=== PATIENT | male | born 1940 | race Caucasian/White ===

== ENCOUNTER 2019-05-26 19:18 | Observation (INO) | payer MEDICARE, OTHER, SELFPAY ==
[2019-05-26] VITALS (11 sets, daily range): BP systolic 103–188; BP diastolic 71–110; PULSE 65–107; RESP 15–23; TEMP 36.7–36.9; O2SAT 92–96; BMI 28.7
--- NOTE | 2019-05-26 | DI.NM.S_ITS ---
PROCEDURE: NM MIHAI PERF SPECT STR Rest and exercise myocardial perfusion SPECT with gated imaging and ejection fraction RADIOPHARMACEUTICAL: 27.9 mCi Tc-99m sestamibi IV at peak exercise. No rest images done. INDICATIONS: Chest pain TECHNIQUE: Radiopharmaceutical was injected at peak stress test, and also at rest. SPECT images were obtained. SPECT myocardial perfusion images were displayed in short axis, horizontal long axis, and vertical long axis views. Gated images were reviewed using [employer] software. COMPARISON: None. CARDIAC STRESS: A standard Wilbert treadmill exercise tolerance test was performed by the patient under the supervision of an attending staff. The patient exercised for 6 minutes and 0 seconds; functional aerobic impairment (GOLDY) is -9%. Hemodynamic data: There is normal blood pressure and heart rate response to exercise stress. Patient achieved 92% of maximum predicted heart rate at peak exercise. Symptoms: Patient denied chest pain during exercise. EKG: No diagnostic EKG changes of ischemia; no ectopy. FINDINGS: Raw data: There is good myocardial labeling by radiotracer. No significant motion artifacts. Umvj-xj-zutnr ratio is 0.28 (normal is less than 0.38 for sestamibi tracer, and less than 0.50 for thallium tracer). Left ventricle function: Gated images demonstrate normal left ventricle wall thickening. No segmental wall motion abnormality. The left ventricle post stress end-diastolic volume is 74 mL. Left ventricle stress ejection fraction is 88%; normal values are above 45%. Myocardial perfusion: There is normal distribution of activity in the left and right ventricular myocardium. No fixed or reversible perfusion defects. IMPRESSION: Low risk, normal treadmill stress only nuclear study. 1) No perfusion evidence of ischemia or infarction. 2) Normal left ventricular size, wall motion, and systolic function (EF post stress 88%). 3) No ECG evidence of ischemia. 4) No angina during the study. 5) Slightly above average exercise capacity (7.0 METs, GOLDY -9%). Target heart rate achieved. Appropriate BP response to exercise. 6) No prior nuclear stress test available for comparison. Findings discussed with Dr. Cooper at 1245 on 05/27/2019. Dictated by: Mary Anne Dozier MD on 05/27/2019 at 13:00 Approved by: Mary Anne Dozier MD on 05/27/2019 at 13:04
--- NOTE | 2019-05-26 19:25 | DI.RAD.S_ITS ---
PROCEDURE: XR CHEST 1V INDICATIONS: chest pain TECHNIQUE: One view of the chest was acquired. COMPARISON: None. FINDINGS: Surgical changes and devices: None. Lungs and pleura: Lungs are clear. No pleural effusions or pneumothorax. Mediastinum: Mediastinal contours appear normal. Heart size is normal. Bones and chest wall: No suspicious bony lesions. Overlying soft tissues appear unremarkable. IMPRESSION: No acute process. Dictated by: Michael Carlton M.D. on 05/26/2019 at 19:59 Approved by: Michael Carlton M.D. on 05/26/2019 at 20:00
--- NOTE | 2019-05-26 19:34 | ED_ITS ---
HPI - Chest Pain General Chief Complaint: Chest Pain Stated Complaint: pain left shoulder,left side chest pain Time Seen by Provider: 05/26/19 19:20 Source: patient Mode of arrival: Ambulatory Limitations: no limitations History of Present Illness HPI narrative: 78-year-old male nonsmoker with history of hypertension presents with his and a chief complaint of left-sided chest pressure that came in waves earlier in the day but became more persistent after 6:00 p.m.. He denies any provocation or palliation but does state that seems to radiate into his shoulder though he has had shoulder problems for at least a month. He denies associated symptoms such as dizziness, weakness or lightheadedness. He denies any cough or shortness of breath. He denies any exertional provocation and states that he uses his treadmill a few times weak and does not have decreased exercise tolerance. He has never had a stress test or any cardiac history. His primary care provider is Dr. Alex. At its most intense he states the pain is squeezing in nature and 4/10 in severity MD complaint: chest pain Onset (ago): hour(s) Duration: constant Onset: during rest Pain location: left chest Severity: moderate Quality: tightness and aching Pain radiation: LUE Relieving factors: nothing Exacerbating factors: nothing Treatments prior to arrival chest pain: none Review of Systems Constitutional Constitutional: Denies chills, Denies fatigue, Denies fever(s), Denies frequent falls, Denies lethargy and Denies weakness Eyes Eyes: Denies change in vision, Denies eye discharge, Denies irritation and Denies loss of vision ENT Ears, Nose, Mouth, and Throat: Denies change in voice, Denies dizziness, Denies neck pain, Denies sore throat and Denies throat swelling Cardiovascular Cardiovascular: Reports chest pain, Denies irregular heart rhythm, Denies lightheadedness, Denies palpitations, Denies dyspnea, Denies dyspnea on exertion and Denies orthopnea Respiratory Respiratory: Denies cough, Denies dyspnea, Denies dyspnea on exertion and Denies wheezing Gastrointestinal Gastrointestinal: Denies abdominal pain, Denies change in bowel habits, Denies diarrhea, Denies nausea and Denies vomiting Genitourinary Genitourinary: Denies hematuria, Denies flank pain, Denies urinary incontinence and Denies urinary urgency Musculoskeletal Musculoskeletal: Denies back pain, Denies muscle weakness, Denies neck pain, Denies numbness and Denies tingling Integumentary/Breasts Skin/Breast: Denies pruritus, Denies erythema, Denies rash and Denies wounds Neurologic Neurologic: Denies behavioral changes, Denies confusion, Denies dizziness, Denies frequent falls, Denies loss of vision, Denies numbness, Denies tingling and Denies weakness Psychiatric Psychiatric: Denies anxiety, Denies behavioral changes, Denies confusion, Denies depression, Denies homicidal ideation and Denies suicidal ideation Endocrine Endocrine: Denies fatigue, Denies flushing and Denies palpitations Hematologic/Lymphatic Hematologic/Lymphatic: Denies easy bruising Allergic/Immunologic Allergic/Immunologic: Denies urticaria, Denies throat swelling and Denies wheezing Patient History Social History Smoking Status: Never smoker Smoking Status: Never smoker Exam Narrative Exam Narrative: GENERAL: [78] year old patient appears stated age. Well-no urished, well-developed patient, in mild distress. Hard of hearing HEAD: Atraumatic. Normocephalic. EYES: Pupils equal round and reactive. Extraocular motions intact. No scleral icterus. No injection or drainage. ENT: Nose without bleeding, purulent drainage. Throat without erythema, tonsillar hypertrophy or exudate. Airway patent. NECK: Trachea midline. Non tender CARDIOVASCULAR: Regular rate and rhythm without murmurs, gallops, or rubs. RESPIRATORY: Clear to auscultation. Breath sounds equal bilaterally. No wheezes, rales, or rhonchi. GASTROINTESTINAL: Abdomen soft, non-tender, nondistended. EXTREMITIES: No edema or joint tenderness. BACK: Nontender without deformity or crepitance. No flank tenderness. NEURO: AOx3. SKIN: No rash or erythema of visible areas Initial Vital Signs Initial Vital Signs: Vital Signs Pulse Rate 107 H 05/26/19 19:24 Respiratory Rate 20 05/26/19 19:24 Blood Pressure 188/110 H 05/26/19 19:24 Pulse Oximetry 96 05/26/19 19:24 Course Orders Ordered: ED Orders 05/26/19 19:25 XR chest 1V Stat EKG-12 Lead Stat 05/26/19 19:30 Complete Blood Count AUTO DIFF Stat Comprehensive Metabolic Panel Stat D Dimer Stat Lipase Stat Troponin I Stat 05/26/19 21:22 Troponin I Stat Nitroglycerin (Nitrostat) 0.4 mg SL [id number] PRN PRN Reason: Chest Pain Last Admin: 05/26/19 19:42 Dose: 0.4 mg Documented by: JUSTO Discontinued Medications Aspirin (Aspirin Chew) 324 mg PO NOW ONE Stop: 05/26/19 19:36 Last Admin: 05/26/19 19:41 Dose: 324 mg Documented by: JUSTO Reevaluation(s) Reevaluation #1: patient given full dose ASA and first NG, BP down to 110 and chest pain worse. He lays down and symptoms improve. Consultations Consultation #1: Call to Cardiology at [facility]. After discussion regarding the patient's recent history and physical exam as well as nonischemic EKGs and 1st negative troponin we sure the opinion the patient certainly needs admission to the hospital but does not require transfer at this point time. He recommends consultation with our hospitalist admission here for stress test and likely echo Consultation #2: Hospitalist happy to accept patient on his service Vital Signs Vital signs: Vital Signs - 8 hr 05/26/19 19:24 05/26/19 19:36 05/26/19 19:42 Pulse Rate 107 H 92 H 107 H Respiratory Rate 20 18 Blood Pressure 188/110 H 179/92 H Blood Pressure [Left Arm] 179/92 H Pulse Oximetry 96 96 05/26/19 19:50 05/26/19 20:00 05/26/19 20:30 Pulse Rate 101 H 99 H 89 Respiratory Rate 20 19 19 Blood Pressure Blood Pressure [Left Arm] 103/75 113/79 127/71 Pulse Oximetry 92 93 93 05/26/19 21:00 Pulse Rate 85 Respiratory Rate 15 Blood Pressure Blood Pressure [Left Arm] 135/82 Pulse Oximetry 93 MDM - Chest Pain Lab Data Result diagrams: 05/26/19 19:30 05/26/19 19:30 Labs: Lab Results 05/26/19 05/26/19 05/26/19 Range/Units 19:30 19:30 19:30 WBC 7.8 (4.5-11.0) X10^3/uL RBC 5.58 (4.5-5.9) X10^6/uL Hgb 18.5 H (13.5-17.5) g/dL Hct 53.4 H (41-53) % MCV 95.8 (80-100) fL MCH 33.2 (26-34) PG MCHC 34.6 (30-36) % RDW 13.1 (11.6-14.8) % Plt Count 153 (150-400) X10^3/uL Neut % (Auto) 66.4 (50-75) % Lymph % (Auto) 20.8 L (25-40) % [place] % (Auto) 10.8 (3-14) % Eos % (Auto) 1.1 L (2-4) % Baso % (Auto) 0.9 (0-2) % Neut # (Auto) 5200 (0202-9682) /uL Lymph # (Auto) 1600 (8185-7556) /uL [place] # (Auto) 800 (0-900) /uL Eos # (Auto) 100 (0-450) /uL Baso # (Auto) 100 (0-100) /uL D-Dimer 260 H (<230) ng/mL Sodium 139 (137-145) mmol/L Potassium 4.3 (3.4-5.1) mmol/L Chloride 107 (98-107) mmol/L Carbon Dioxide 22 (22-32) mmol/L BUN 22 H (9-20) mg/dL Creatinine 0.80 (0.66-1.25) mg/dL Estimated GFR > 60.0 (>60) mL/min BUN/Creatinine Ratio 27.5 H (6-22) Glucose 134 H (80-110) mg/dL Calcium 9.9 (8.4-10.2) mg/dL Total Bilirubin 0.6 (0.2-1.3) mg/dL AST 35 (17-59) IU/L ALT 39 (<50) IU/L Alkaline Phosphatase 62 (38-126) U/L Troponin I < 0.012 (0.01-0.034) ng/mL Total Protein 7.9 (6.3-8.2) g/dL Albumin 4.7 (3.5-5.0) g/dL Globulin 3.2 (1.7-4.1) g/dL Albumin/Globulin Ratio 1.5 (1.0-2.8) Lipase 213 (23-300) U/L Imaging Data Chest x-ray: Radiologist's Impression: [address] [address] XRay Report Signed Patient: Bebo Nayak KMR#: [id number] : 1Acct:[id number] Age/Sex: 78 / MDate of Service: 05/26/19 Loc: ED Accession Number: [id number] Procedure: XR chest 1V Ordering Provider: Levon Dasilva D.O. PROCEDURE: XR CHEST 1V INDICATIONS: chest pain TECHNIQUE: One view of the chest was acquired. COMPARISON: None. FINDINGS: Surgical changes and devices: None. Lungs and pleura: Lungs are clear. No pleural effusions or pneumothorax. Mediastinum: Mediastinal contours appear normal. Heart size is normal. Bones and chest wall: No suspicious bony lesions. Overlying soft tissues appear unremarkable. IMPRESSION: No acute process. Dictated by: Michael Carlton M.D. on 05/26/2019 at 19:59 Approved by: Michael Carlton M.D. on 05/26/2019 at 20:00 ECG Data Attestation: I personally reviewed and interpreted this ECG as follows: Interpretation: EKG is normal sinus rhythm rate [100 ] and free of any signs of ischemia or ectopy. No ST segmental elevation or depression. No T wave inversions Discharge Plan Departure Patient Disposition: Admitted as Observation Clinical Impression: Chest pain Qualifiers: Chest pain type: unspecified Qualified Code(s): R07.9 - Chest pain, unspecified Admit Date/Time: 05/26/19 21:38 Admit Provider: Tayo Melendez
[2019-05-26 19:41] LABS: Add Manual Diff / Slide Review NO; Basophils Absolute Auto 100 /uL (0-100); Basophils Percent Auto 0.9 % (0-2); Eosinophils Absolute Auto 100 /uL (0-450); Eosinophils Percent Auto 1.1 % (2-4); Hematocrit 53.4 % (41-53); Hemoglobin 18.5 g/dL (13.5-17.5); Lymphocytes Absolute Auto 1600 /uL (1100-4500); Lymphocytes Percent Auto 20.8 % (25-40); Mean Corpuscular HGB Conc 34.6 % (30-36); Mean Corpuscular Hemoglobin 33.2 PG (26-34); Mean Corpuscular Volume 95.8 fL (80-100); Monocytes Absolute Auto 800 /uL (0-900); Monocytes Percent Auto 10.8 % (3-14); Neutrophils Absolute Auto 5200 /uL (1500-7000); Neutrophils Percent Auto 66.4 % (50-75); Platelet Count 153 X10^3/uL (150-400); Red Blood Cell Count 5.58 X10^6/uL (4.5-5.9); Red Cell Distribution Width 13.1 % (11.6-14.8); White Blood Cell Count 7.8 X10^3/uL (4.5-11.0)
[2019-05-26] MEDS: ASPIRIN 81 MG CHEW TAB 324 MG PO (19:41)
[2019-05-26] MEDS: NITROGLYCERIN 0.4 MG SL TAB SL (19:42)
[2019-05-26 19:51] LABS: Alanine Aminotransferase 39 IU/L (<50); Albumin 4.7 g/dL (3.5-5.0); Albumin Globulin Ratio 1.5 (1.0-2.8); Alkaline Phosphatase 62 U/L (38-126); Aspartate Aminotransferase 35 IU/L (17-59); BUN Creatinine Ratio 27.5 (6-22); Bilirubin Total 0.6 mg/dL (0.2-1.3); Blood Urea Nitrogen 22 mg/dL (9-20); Calcium 9.9 mg/dL (8.4-10.2); Carbon Dioxide 22 mmol/L (22-32); Chloride 107 mmol/L (98-107); Estimated Glomerular Filt Rate > 60.0 mL/min (>60); Globulin 3.2 g/dL (1.7-4.1); Glucose 134 mg/dL (80-110); HEMOLYSIS 46 (0-50); Lipase 213 U/L (23-300); Potassium 4.3 mmol/L (3.4-5.1); Sodium 139 mmol/L (137-145); Total Protein 7.9 g/dL (6.3-8.2)
[2019-05-26 20:02] LABS: Troponin I < 0.012 ng/mL (0.01-0.034)
[2019-05-26 20:46] LABS: D Dimer 260 ng/mL (<230)
[2019-05-26 21:58] LABS: Troponin I < 0.012 ng/mL (0.01-0.034)
--- NOTE | 2019-05-26 22:15 | PC.ADMIT ---
[address] Admission Note: The patient,Bebo Nayak,78 y/o, was given written information regarding hospital policies, unit procedures and contact persons. Pt arrived from ED via w/c. Ambulated to bed. Steady on feet. VSS. RA. Tele placed on. Denies chest pain. Report 03/29 l. shoulder pain. oriented to room and call system. Bed alarm on. Pt verbalized he will call for needs. Patient's smoking status: Never smoker. Vital Signs - 8 hr 05/26/19 19:24 05/26/19 19:36 05/26/19 19:42 Pulse Rate 107 H 92 H 107 H Respiratory Rate 20 18 Blood Pressure 188/110 H 179/92 H Blood Pressure [Left Arm] 179/92 H Pulse Oximetry 96 96 05/26/19 19:50 05/26/19 20:00 05/26/19 20:30 Pulse Rate 101 H 99 H 89 Respiratory Rate 20 19 19 Blood Pressure Blood Pressure [Left Arm] 103/75 113/79 127/71 Pulse Oximetry 92 93 93 05/26/19 21:00 05/26/19 21:59 Pulse Rate 85 65 Respiratory Rate 15 23 Blood Pressure Blood Pressure [Left Arm] 135/82 142/83 H Pulse Oximetry 93 94
[2019-05-26 22:48] LABS: Prothrombin Time 11.3 SECONDS (10.1-12.7)
[2019-05-26 22:51] LABS: PTT Partial Thromboplastin Tim 30 SECONDS (26.4-36.2)
[2019-05-26] MEDS: SODIUM CHLORIDE 0.9% 1,000 ML 100 ML IV (23:08)
--- NOTE | 2019-05-26 23:44 | PM.HP.1 ---
History of Present Illness History of Present Illness Date Patient Seen: 05/26/19 Time Patient Seen: 23:44 Chief complaint: pain left shoulder,left side chest pain Narrative: Mr. Bebo Nayak is a 78-year-old male with a history significant for hypertension, hyperlipidemia and prediabetes who presents to the ER with chest pain. The patient states that he started having intermittent episodes of left anterior chest discomfort approximately 1:00 p.m. today becoming constant approximately 6:00 p.m.. He describes the episodes is a pressure sensation which radiates to the left shoulder and upper arm that he describes as an ache. He reports no history of trauma or injury and the pain is not palpable reproducible. He rates the pain at its worst as 3/10. He denies associated symptoms of shortness of breath nausea or palpitations. The patient denies previous episodes of chest pain and exercises on treadmill typically 2 times per week. He controls his blood sugar by not eating sweets. Patient denies complaints of recent illness and has had no fevers and chills, nasal congestion or sore throat. He has chest pain as described above without palpitations. He denies complaints of shortness of breath cough or wheezing. He has had no abdominal pain and denies heartburn, nausea or vomiting. He describes no change in bowel habits with this last bowel movement this morning. He reports no difficulty urinating, he gets up 2-3 times nightly to urinate. He is normally active and independent in his ADLs. Upon arrival to the ER the patient has a heart rate of 107 with a blood pressure 188/110, respirations of 20 saturating 96% on room air. Twelve lead EKG is obtained which finds sinus tach at a rate of 100 without ectopy, first-degree AV block is present with a p.r. interval of 208 milliseconds. Q-waves are noted in lead [address] or T-wave changes. A chest x-rays taken which finds no acute cardiopulmonary processes. On laboratory analysis he has white count of 7.8, hemoglobin of 18.5, hematocrit of 53.4 and platelets of 153. His electrolytes are within normal limits and has a BUN of 22 and a creatinine of 0.8. Nonfasting glucose is 134. Liver function tests are all within normal limits. His D-dimer is 260. He had troponin evaluated in the ER twice both of which were negative at less than 0.012. In the ER the patient received aspirin 324 mg and 1 sublingual nitroglycerin which appears to have resolved the patient's chest discomfort. Cardiology was contacted who recommends overnight monitoring and stress test. The patient is admitted to the medicine service for chest pain, rule out acute coronary syndrome. Patient History Medical History (Updated 05/27/19 @ 00:15 by CARLTON Baires) Hyperlipidemia (Acute) Hypertension (Acute) Pre-diabetes (Acute) Surgical History (Updated 05/27/19 @ 00:15 by CARLTON Baires) History of appendectomy (Acute) Family & Social History Family History (Updated 05/27/19 @ 00:18 by CARLTON Baires) Father No significant medical problems Mother No significant medical problems Brother Cancer Tobacco & Substance use: Smoking Status Never smoker Comment: The patient lives in a single family home with his to whom he has been for 59 years. Reports his father lived to be 99 and related to sequelae of head trauma. His mother lived to be 102 with no significant medical problems. He has 2 brothers 1 of whom has bone cancer. His 3 children whom he describes is in good health. He has no family history of diabetes. He indicates that his grandmother and grandfather both had cancer. He reports no other family members have known heart disease. Smoking: The patient has never used tobacco products. Alcohol: Patient endorses consuming 2 glasses a wine nightly. Substance use: The patient denies use of recreational pharmaceuticals herbal products. He did try hemp seeds a few weeks ago without benefit. Advanced directives: Patient does have formal advanced directives and states his desire to be FULL CODE. He designates his Letty to be his surrogate decision maker. Meds Home Medications and Allergies Home Medications Medication Instructions Recorded Confirmed Type lisinopril 20 mg PO DAILY 05/26/19 05/26/19 History Allergies Allergy/AdvReac Type Severity Reaction Status Date / Time Dfnaord-Wfb-Jbt Reductase Allergy Verified 05/26/19 22:11 Inhibitor Review of Systems Review of Systems ROS: Yes All systems reviewed with the patient and are negative except as otherwise documented Exam Vital Signs (past 8 hours): - 05/26/19 19:24 05/26/19 19:36 05/26/19 19:42 Temperature Pulse Rate 107 H 92 H 107 H Respiratory Rate 20 18 Blood Pressure 188/110 H 179/92 H Blood Pressure [Left Arm] 179/92 H Pulse Oximetry 96 96 05/26/19 19:50 05/26/19 20:00 05/26/19 20:30 Temperature Pulse Rate 101 H 99 H 89 Respiratory Rate 20 19 19 Blood Pressure Blood Pressure [Left Arm] 103/75 113/79 127/71 Pulse Oximetry 92 93 93 05/26/19 21:00 05/26/19 21:59 05/26/19 22:14 Temperature Pulse Rate 85 65 Respiratory Rate 15 23 Blood Pressure Blood Pressure [Left Arm] 135/82 142/83 H Pulse Oximetry 93 94 95 05/26/19 22:16 Temperature 98.5 F Pulse Rate 91 H Respiratory Rate 18 Blood Pressure 127/84 Blood Pressure [Left Arm] Pulse Oximetry 95 Oxygen Delivery Method Room Air Narrative Exam Narrative: GENERAL APPEARANCE: well developed, overweight male, in no acute distress. HEENT: Normocephalic, PERRLA, conjunctiva clear, sclerae are anicteric, EOMs intact without nystagmus, no sinus tenderness to percussion, no rhinorrhea, mucous membranes are pink and dry, hearing aid in left ear. NECK/THYROID: neck supple, no JVD, no carotid bruit, no thyromegaly, trachea midline. LYMPH NODES: no cervical or supraclavicular lymphadenopathy. SKIN: [place], warm and dry, no visible lesions, rashes, decreased skin turgor. HEART: regular rate and rhythm, S1-S2, 2/6 systolic murmur, no rubs or gallops, brisk capillary refill, no edema LUNGS: clear to auscultation bilaterally, no coarseness crackles or wheezing, no cough present CHEST: Symmetrical movement, no accessory muscle use, good tidal volume. ABDOMEN: Soft, round, tympanic upper abdomen to percussion, no abdominal tenderness, no organomegaly, no flank or suprapubic tenderness, active bowel tones. BACK: Normal curvature, nontender to palpation, no back pain with straight leg raise. EXTREMITIES: moves all extremities, strength is 5/5 and symmetrical, no deformities or joint effusions. NEUROLOGIC: AAO x4, no focal neurologic deficits, cranial nerves II-XII grossly intact, sensation intact to light touch, presbycusis uses hearing aids.. PSYCH: Good judgment, linear thought process, cooperative, appropriate with stable behavior Objective Labs Result Diagrams: 05/26/19 19:30 05/26/19 19:30 Labs: Laboratory Results - last 24 hr 05/26/19 05/26/19 05/26/19 19:30 19:30 19:30 WBC 7.8 RBC 5.58 Hgb 18.5 H Hct 53.4 H MCV 95.8 MCH 33.2 MCHC 34.6 RDW 13.1 Plt Count 153 Neut % (Auto) 66.4 Lymph % (Auto) 20.8 L [place] % (Auto) 10.8 Eos % (Auto) 1.1 L Baso % (Auto) 0.9 Neut # (Auto) 5200 Lymph # (Auto) 1600 [place] # (Auto) 800 Eos # (Auto) 100 Baso # (Auto) 100 PT INR APTT D-Dimer 260 H Sodium 139 Potassium 4.3 Chloride 107 Carbon Dioxide 22 BUN 22 H Creatinine 0.80 Estimated GFR > 60.0 BUN/Creatinine Ratio 27.5 H Glucose 134 H Calcium 9.9 Total Bilirubin 0.6 AST 35 ALT 39 Alkaline Phosphatase 62 Troponin I < 0.012 Total Protein 7.9 Albumin 4.7 Globulin 3.2 Albumin/Globulin Ratio 1.5 Lipase 213 05/26/19 05/26/19 19:30 21:22 WBC RBC Hgb Hct MCV MCH MCHC RDW Plt Count Neut % (Auto) Lymph % (Auto) [place] % (Auto) Eos % (Auto) Baso % (Auto) Neut # (Auto) Lymph # (Auto) [place] # (Auto) Eos # (Auto) Baso # (Auto) PT 11.3 INR 1.0 APTT 30 D-Dimer Sodium Potassium Chloride Carbon Dioxide BUN Creatinine Estimated GFR BUN/Creatinine Ratio Glucose Calcium Total Bilirubin AST ALT Alkaline Phosphatase Troponin I < 0.012 Total Protein Albumin Globulin Albumin/Globulin Ratio Lipase Assessment & Plan Assessment & Plan narrative: 1. Chest pain, rule out acute coronary syndrome, present on admission, active. -Patient with new onset of chest pain at 1:00 p.m. that would, go becoming a constant pressure approximately 6:00 p.m. with associated radiation to the left shoulder and arm. No associated symptoms of shortness of breath diaphoresis or nausea. Chest pain improved in the ER following 1 sublingual nitroglycerin. -No prior episodes and no significant family history of cardiovascular disease. Patient's personal history of hypertension, hyperlipidemia and prediabetes. -Twelve lead EKG shows sinus tach at 100 and without ectopy, first-degree AV block with a [place] interval of 208 milliseconds, Q-waves noted in lead 2 and 3, no ST or T-wave changes. Chest x-ray reveals no acute cardiopulmonary processes. -2 hours serial troponins are negative both being less than 0.012. D-dimer is 260. -patient receives aspirin 324 mg in the ER will continue aspirin 81 mg daily. -ordered nitro Dur paste 0.4 mg topically daily, nitroglycerin sublingual every 5 minutes x3 for chest pain, morphine 2 mg IV as needed chest pain unrelieved by nitro. -ordered echocardiogram with Q-waves inferiorly in lead 2 and 3. -ordered nuclear med stress test. -added PTT, PT/INR to labs. 2. Essential hypertension, present on admission, active -Patient with elevated blood pressure upon arrival in the ER to 188/110. -Patient received nitroglycerin sublingual in the ER with marked improvement of blood pressure. Blood pressure on admission to the floors 129/83. -will continue patient's home regimen of lisinopril 20 mg daily. 3. Hyperlipidemia, present on admission, active. 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 -last lipid panel on record was February 2017 finding total cholesterol of 148, triglycerides 121, LDL of 59 and HDL 65. -will recheck lipid panel with morning labs. -will continue patient's home lipid management medication once identified, his is bringing medication in from home tomorrow. 4. Pre diabetes, present on admission, active. -Patient has elevated blood sugar 134 on admission to the ER. -patient manages blood sugars by dietary management and avoiding sweets. -will check hemoglobin A1c. VTE prophylaxis: SCDs, heparin. IV fluid: Normal saline 100 cc/hour Diet: Heart healthy, no added sweets, NPO after midnight. The patient is admitted to the hospital for chest pain and rule out acute coronary syndrome. Patient is admitted as observation with expected length of stay to be less than 2 midnights. Scores GCS [place] coma scale eye opening: Spontaneous [place] coma scale verbal response: Orientated [place] coma scale motor response: Obey commands [place] coma scale total score: 15
[2019-05-27] VITALS (9 sets, daily range): BP systolic 102–129; BP diastolic 64–83; PULSE 69–75; RESP 15–17; TEMP 36.3–36.6; O2SAT 93–96
[2019-05-27] MEDS: NITROGLYCERIN 0.4 MG PATCH TOP (00:42)
--- NOTE | 2019-05-27 01:51 | PC.NURSE ---
SPO2 while sleeping 90%, 2 liters / applied & SPO2 94-95%. Re-assessed pain level, CP down to 0.5 to zero. Will cont. POC & monitor.
[2019-05-27 05:59] LABS: Add Manual Diff / Slide Review NO; Basophils Absolute Auto 100 /uL (0-100); Basophils Percent Auto 1.1 % (0-2); Eosinophils Absolute Auto 100 /uL (0-450); Eosinophils Percent Auto 1.9 % (2-4); Hematocrit 46.4 % (41-53); Hemoglobin 15.9 g/dL (13.5-17.5); Lymphocytes Absolute Auto 1300 /uL (1100-4500); Lymphocytes Percent Auto 23.8 % (25-40); Mean Corpuscular HGB Conc 34.4 % (30-36); Mean Corpuscular Hemoglobin 32.7 PG (26-34); Mean Corpuscular Volume 95.2 fL (80-100); Monocytes Absolute Auto 700 /uL (0-900); Monocytes Percent Auto 12.6 % (3-14); Neutrophils Absolute Auto 3400 /uL (1500-7000); Neutrophils Percent Auto 60.6 % (50-75); Platelet Count 132 X10^3/uL (150-400); Red Blood Cell Count 4.87 X10^6/uL (4.5-5.9); White Blood Cell Count 5.6 X10^3/uL (4.5-11.0)
[2019-05-27 06:05] LABS: BUN Creatinine Ratio 26.3 (6-22); Blood Urea Nitrogen 21 mg/dL (9-20); Calcium 8.6 mg/dL (8.4-10.2); Carbon Dioxide 27 mmol/L (22-32); Chloride 108 mmol/L (98-107); Cholesterol 126 mg/dL (140-199); Estimated Glomerular Filt Rate > 60.0 mL/min (>60); Glucose 104 mg/dL (80-110); HDL Cholesterol 43 mg/dL (40-60); HEMOLYSIS < 15 (0-50); LDL Cholesterol Calculated 71 mg/dL (<100); Potassium 4.5 mmol/L (3.4-5.1); Sodium 139 mmol/L (137-145); Triglycerides 60 mg/dL (35-150)
[2019-05-27 06:13] LABS: Hemoglobin A1C% w Est Avg Glu 5.7 % (4.0-6.0)
[2019-05-27] MEDS: MORPHINE 2 MG/ML INJ IV (06:28)
[2019-05-27 06:35] LABS: Troponin I < 0.012 ng/mL (0.01-0.034)
[2019-05-27] MEDS: MAG HYDROX/ALUM/SIMETH 30 ML UDC PO (06:49)
--- NOTE | 2019-05-27 07:15 | PC.NURSE ---
0658 Pain level down to 1/10 after medicated with 2 mg. of Morphine IVP & B/P after Morphine was admin. was 101/64 & HR. of 66. Also given Maalox per Hospitalist ordered. Report given to day RN, will cont. POC & monitor
--- NOTE | 2019-05-27 08:35 | CM.DANOTE ---
DCP: Case received, EMR reviewed and met with patient. Introduced self and role. Was able to meet with patient to obtain information regarding baseline activity and health information. DCP assessment completed with information currently available. Patient is a 78 year old male who admitted yesterday evening to the care of the hospitalist team. PCP: Dr. Alex. Payer: confirmed: Medicare/[employer] PPO. Patient came to the hospital via family vehicle secondary to left sided chest pain and left shoulder discomfort. Patient has history of HTN. Patient is here for observation for chest pain, and is to be having a stress test today. Met with patient briefly. Patient is alert and oriented, sitting up in bed. He is independent, drives, uses no DME supplies. Confirmed that he resides with his Letty, in [facility]. They have been for 59 years. P: DCP to continue to follow. Patient should be able to go home when he is medically stable. Debra Llanos RN/Clay [employer]isan
[2019-05-27] MEDS: HEPARIN 5,000 UNIT/ML VIAL 5000 UNIT SUBCUT (09:04)
[2019-05-27] MEDS: SODIUM CHLORIDE 0.9% FLUSH 10 ML IV (09:04)
[2019-05-27] MEDS: ASPIRIN EC 81 MG TABLET PO (09:04)
--- NOTE | 2019-05-27 11:52 | PM.TREADMILL ---
Cardiac Stress Test Report Referral & Results Date Patient Seen: 05/27/19 Time Patient Seen: 11:52 Requesting provider: Tayo Melendez Indication: chest pain Rest ECG: sinus rhythm Procedure Note: ECG with technically poor tracings Standard Wilbert protocol, 6:01, 6.9 METS Good exercise capacity, GOLDY -9% Normal hemodynamic response to exercise No chest pain or anginal symptoms Resting ECG sinus rhythm, no ST changes; no ectopy Impression: Normal exercise stress test Nuclear images pending Please note: Actual ECG tracings can be found in the PACS system.
--- NOTE | 2019-05-27 13:35 | P.DS_ITS ---
History of Present Illness History of Present Illness Chief complaint: pain left shoulder,left side chest pain Narrative: Mr. Bebo Nayak is a 78-year-old male with a history significant for hypertension, hyperlipidemia and prediabetes who presents to the ER with chest pain. The patient states that he started having intermittent episodes of left anterior chest discomfort approximately 1:00 p.m. today becoming constant approximately 6:00 p.m.. He describes the episodes is a pressure sensation which radiates to the left shoulder and upper arm that he describes as an ache. He reports no history of trauma or injury and the pain is not palpable reproducible. He rates the pain at its worst as 3/10. He denies associated symptoms of shortness of breath nausea or palpitations. The patient denies previous episodes of chest pain and exercises on treadmill typically 2 times per week. He controls his blood sugar by not eating sweets. Patient denies complaints of recent illness and has had no fevers and chills, nasal congestion or sore throat. He has chest pain as described above without p alpitations. He denies complaints of shortness of breath cough or wheezing. He has had no abdominal pain and denies heartburn, nausea or vomiting. He describes no change in bowel habits with this last bowel movement this morning. He reports no difficulty urinating, he gets up 2-3 times nightly to urinate. He is normally active and independent in his ADLs. Upon arrival to the ER the patient has a heart rate of 107 with a blood pressure 188/110, respirations of 20 saturating 96% on room air. Twelve lead EKG is obtained which finds sinus tach at a rate of 100 without ectopy, first-degree AV block is present with a p.r. interval of 208 milliseconds. Q-waves are noted in lead [address] or T-wave changes. A chest x-rays taken which finds no acute cardiopulmonary processes. On laboratory analysis he has white count of 7.8, hemoglobin of 18.5, hematocrit of 53.4 and platelets of 153. His electrolytes are within normal limits and has a BUN of 22 and a creatinine of 0.8. Nonfasting glucose is 134. Liver function tests are all within normal limits. His D-dimer is 260. He had troponin evaluated in the ER twice both of which were negative at less than 0.012. In the ER the patient received aspirin 324 mg and 1 sublingual nitroglycerin which appears to have resolved the aurelio cloud's chest discomfort. Cardiology was contacted who recommends overnight monitoring and stress test. The patient is admitted to the medicine service for chest pain, rule out acute coronary syndrome. Discharge Providers Provider Date of admission: 05/26/19 21:38 Discharge Date: 05/27/19 Primary care physician: Martir Alex MD Consults: 05/26/19 22:01 Consult to Discharge Planning Routine Comment: Discharge provider: Zach Matos MD Summary Hospital Course Discharge Diagnosis: 1. Chest pain rule out 2. Shoulder pain 3. Polycythemia, NOS 4. Essential hypertension Hospital Course: Patient ruled out for [place]. His MIBI stress test was low risk without areas of ischemia. GOLDY - 9. He was initially hypertensive but BP normalized on its own. He described pain in the left trap m. radiating to shoulder and anterior chest suggestive of nerve impingement. He will follow up with Dr Alex for further eval and possible PT referral. He has polycythemia. His initial labs showed Hb/Hct 18.5/53.4 and with overnight hydration improved to 15.9/46.4. Looking on Kuli Kuli he has had polycythemia on labs dating to 2016. I asked patient to follow up with Dr Alex for further moonitoring or work up. Status at Discharge Cognitive/behavioral status at discharge: oriented Functional status at discharge: independent ambulation Overall status at discharge: patient is back to baseline Time Spent with Patient Time spent: Less than 30 minutes Exam Vital Signs (past 8 hours): - 05/27/19 06:00 05/27/19 07:50 05/27/19 07:52 Temperature 97.6 F Pulse Rate 73 Respiratory Rate 15 Blood Pressure 102/67 Pulse Oximetry 96 95 96 05/27/19 08:59 05/27/19 10:21 05/27/19 11:26 Temperature 98 F Pulse Rate 73 75 Respiratory Rate 17 Blood Pressure 102/67 106/76 Pulse Oximetry 93 93 Oxygen Delivery Method Room Air Oxygen Flow Rate 0 Objective Labs Result Diagrams: 05/27/19 05:00 05/27/19 05:00 Labs: Laboratory Results - last 24 hr 05/26/19 05/26/19 05/26/19 19:30 19:30 19:30 WBC 7.8 RBC 5.58 Hgb 18.5 H Hct 53.4 H MCV 95.8 MCH 33.2 MCHC 34.6 RDW 13.1 Plt Count 153 Neut % (Auto) 66.4 Lymph % (Auto) 20.8 L [place] % (Auto) 10.8 Eos % (Auto) 1.1 L Baso % (Auto) 0.9 Neut # (Auto) 5200 Lymph # (Auto) 1600 [place] # (Auto) 800 Eos # (Auto) 100 Baso # (Auto) 100 PT INR APTT D-Dimer 260 H Sodium 139 Potassium 4.3 Chloride 107 Carbon Dioxide 22 BUN 22 H Creatinine 0.80 Estimated GFR > 60.0 BUN/Creatinine Ratio 27.5 H Glucose 134 H Hemoglobin A1c Calcium 9.9 Total Bilirubin 0.6 AST 35 ALT 39 Alkaline Phosphatase 62 Troponin I < 0.012 Total Protein 7.9 Albumin 4.7 Globulin 3.2 Albumin/Globulin Ratio 1.5 Triglycerides Cholesterol LDL Cholesterol, Calc HDL Cholesterol Lipase 213 05/26/19 05/26/19 05/27/19 19:30 21:22 05:00 WBC 5.6 RBC 4.87 Hgb 15.9 Hct 46.4 MCV 95.2 MCH 32.7 MCHC 34.4 RDW 13.0 Plt Count 132 L Neut % (Auto) 60.6 Lymph % (Auto) 23.8 L [place] % (Auto) 12.6 Eos % (Auto) 1.9 L Baso % (Auto) 1.1 Neut # (Auto) 3400 Lymph # (Auto) 1300 [place] # (Auto) 700 Eos # (Auto) 100 Baso # (Auto) 100 PT 11.3 INR 1.0 APTT 30 D-Dimer Sodium Potassium Chloride Carbon Dioxide BUN Creatinine Estimated GFR BUN/Creatinine Ratio Glucose Hemoglobin A1c Calcium Total Bilirubin AST ALT Alkaline Phosphatase Troponin I < 0.012 Total Protein Albumin Globulin Albumin/Globulin Ratio Triglycerides Cholesterol LDL Cholesterol, Calc HDL Cholesterol Lipase 05/27/19 05/27/19 05/27/19 05:00 05:00 05:00 WBC RBC Hgb Hct MCV MCH MCHC RDW Plt Count Neut % (Auto) Lymph % (Auto) [place] % (Auto) Eos % (Auto) Baso % (Auto) Neut # (Auto) Lymph # (Auto) [place] # (Auto) Eos # (Auto) Baso # (Auto) PT INR APTT D-Dimer Sodium 139 Potassium 4.5 Chloride 108 H Carbon Dioxide 27 BUN 21 H Creatinine 0.80 Estimated GFR > 60.0 BUN/Creatinine Ratio 26.3 H Glucose 104 Hemoglobin A1c 5.7 Calcium 8.6 Total Bilirubin AST ALT Alkaline Phosphatase Troponin I < 0.012 Total Protein Albumin Globulin Albumin/Globulin Ratio Triglycerides 60 Cholesterol 126 L LDL Cholesterol, Calc 71 HDL Cholesterol 43 Lipase Discharge Plan Discharge Plan Patient Disposition: Home Discharge comment: You were admitted due to chest discomfort. Your stress test did not show any sign of coronary blockage. Your discomfort may be due to a pinched nerve. Take Tylenol (regular or extra strength) 1-2 tabs three times daily as needed. Your blood work showed elevated hemoglobin and hematocrit which Dr Alex can further assess and monitor. Discharge orders & Medications Prescriptions: Continued lisinopril 20 mg tablet 20 mg PO DAILY RF: 0 Follow up/Referrals: Martir Alex MD [Primary Care Provider] - Discharge Health Status Multidrug resistant organism: No MDRO Diet/Activity/Treatments Diet: Diet as Tolerated Discharge Data Primary Care Provider: Martir Alex Attending Provider: Tayo Melendez Admit Date/Time: 05/26/19 21:38 Quality VTE Deep Vein Thrombosis/Pulmonary Embolism Present on Admission: No
--- NOTE | 2019-05-27 14:23 | PC.NURSE ---
Went over dc meds and instructions with patient, questions answered. Patient will call PCP Isai and make follow up appointment. Patient taken via wc to vehicle driven by spouse, patient had all belongings.
--- NOTE | 2019-06-04 15:19 | PC.NURSE ---
Late entry: NS stop time 05/26 1630
== END 2019-05-27 14:25 | disposition home or self-care (01) ==
LOC: ED 21:09 → AC 21:39
PROVIDERS: Admitting Provider Nurse Practitioner Adult Health; Emergency Provider Emergency Medicine; Family Provider Internal Medicine; PCP Internal Medicine; Visit Provider Nurse Practitioner Adult Health
DX: R07.9 Chest pain, unspecified (principal); I10 Essential (primary) hypertension; R73.03 Prediabetes; E78.5 Hyperlipidemia, unspecified; M25.512 Pain in left shoulder; D75.1 Secondary polycythemia
CPT/HCPCS: 36415; 71045; 78451; 80048; 80053; 80061; 83036; 83690; 84484; 85025; 85379; 85610; 85730; 93005; 93010; 93017; 96361; 96372; 96374; 99283; 99284; G0378; A9502; J1644; J2270

== ENCOUNTER → 2019-06-21 10:09 | Outpatient (CLI) | payer MEDICARE, OTHER, SELFPAY ==
[2019-05-26 23:48] VITALS: BMI 28.7
--- NOTE | 2019-06-21 | DI.RAD.S_ITS ---
PROCEDURE: XR SHOULDER LT MIN 2V INDICATIONS: Pain In Left Shoulder TECHNIQUE: 2 views of the shoulder were acquired. COMPARISON: None. FINDINGS: Bones: No fractures or dislocations. No suspicious bony lesions. Visualized ribs appear intact. Severe acromioclavicular degenerative narrowing is present. Mild glenohumeral narrowing. Slight high riding appearance of the humeral head. Soft tissues: No suspicious soft tissue calcifications. IMPRESSION: 1. Prominent degenerative changes at the acromioclavicular and glenohumeral joints. 2. High riding appearance of the humeral head, which can be indicative of rotator cuff pathology. Dictated by: Faina Morris M.D. on 06/21/2019 at 10:42 Approved by: Faina Morris M.D. on 06/21/2019 at 10:43
== END ==
PROVIDERS: Family Provider Internal Medicine; PCP Internal Medicine; Referring Provider Internal Medicine; Visit Provider Internal Medicine
DX: M25.512 Pain in left shoulder (principal)
CPT/HCPCS: 73030

== ENCOUNTER → 2020-04-14 12:48 | Outpatient (CLI) | payer MEDICARE, OTHER, SELFPAY ==
[2019-05-26 23:48] VITALS: BMI 28.7
[2020-04-14] MEDS: COVID-19 VACC #1, MRNA(MOD) 100 MCG/0.5 ML VIAL IM (12:53)
== END ==
PROVIDERS: Family Provider Internal Medicine; PCP Internal Medicine; Visit Provider Internal Medicine
DX: Z23 Encounter for immunization (principal)
CPT/HCPCS: 0011A; 91301

== ENCOUNTER → 2020-05-12 13:00 | Outpatient (CLI) | payer MEDICARE, OTHER, SELFPAY ==
[2019-05-26 23:48] VITALS: BMI 28.7
[2020-05-12] MEDS: COVID-19 VACC #2, MRNA(MOD) 100 MCG/0.5 ML VIAL IM (13:04)
== END ==
PROVIDERS: Family Provider Internal Medicine; PCP Internal Medicine; Visit Provider Internal Medicine
DX: Z23 Encounter for immunization (principal)
CPT/HCPCS: 0012A; 91301

== ENCOUNTER → 2022-04-27 10:52 | Outpatient (CLI) | payer MEDICARE, OTHER, SELFPAY ==
[2022-04-27 10:42] VITALS: BMI 28.7
[2022-04-27 12:06] LABS: Hemoglobin A1C% w Est Avg Glu 5.7 % (4.0-6.0)
[2022-04-27 12:29] LABS: BUN Creatinine Ratio 22.9 (6-22); Blood Urea Nitrogen 19 mg/dL (9-20); Calcium 9.5 mg/dL (8.4-10.2); Carbon Dioxide 28 mmol/L (22-32); Chloride 102 mmol/L (98-107); Cholesterol 168 mg/dL (140-199); Estimated Glomerular Filt Rate > 60 mL/min (>60); Glucose 113 mg/dL (80-110); HDL Cholesterol 57 mg/dL (40-60); HEMOLYSIS < 15 (0-50); LDL Cholesterol Calculated 90 mg/dL (<100); Potassium 4.7 mmol/L (3.4-5.1); Sodium 140 mmol/L (137-145); Triglycerides 105 mg/dL (35-150)
== END ==
PROVIDERS: Family Provider Internal Medicine; PCP Family Medicine; Referring Provider Family Medicine; Visit Provider Family Medicine
DX: R73.01 Impaired fasting glucose (principal); I10 Essential (primary) hypertension; E78.5 Hyperlipidemia, unspecified
CPT/HCPCS: 36415; 80048; 80061; 83036

== ENCOUNTER → 2023-04-24 08:45 | Outpatient (CLI) | payer MEDICARE, OTHER, SELFPAY ==
[2022-04-27 10:42] VITALS: BMI 28.7
[2023-04-24 09:59] LABS: Add Manual Diff / Slide Review NO; Basophils Absolute Auto 0 /uL (0-100); Basophils Percent Auto 0.8 % (0-2); Eosinophils Absolute Auto 200 /uL (0-450); Hematocrit 49.7 % (41-53); Lymphocytes Absolute Auto 800 /uL (1100-4500); Lymphocytes Percent Auto 13.7 % (25-40); Mean Corpuscular HGB Conc 34.2 % (30-36); Mean Corpuscular Hemoglobin 32.7 PG (26-34); Mean Corpuscular Volume 95.5 fL (80-100); Monocytes Absolute Auto 700 /uL (0-900); Monocytes Percent Auto 11.8 % (3-14); Neutrophils Absolute Auto 4300 /uL (1500-7000); Neutrophils Percent Auto 70.7 % (50-75); Platelet Count 158 X10^3/uL (150-400); Red Cell Distribution Width 13.4 % (11.6-14.8); White Blood Cell Count 6.1 X10^3/uL (4.5-11.0)
[2023-04-24 10:05] LABS: Hemoglobin A1C% w Est Avg Glu 5.6 % (4.0-6.0)
[2023-04-24 10:13] LABS: Alanine Aminotransferase 33 IU/L (<50); Albumin 4.3 g/dL (3.5-5.0); Albumin Globulin Ratio 1.6 (1.0-2.8); Alkaline Phosphatase 61 U/L (38-126); Aspartate Aminotransferase 27 IU/L (17-59); BUN Creatinine Ratio 26.8 (6-22); Bilirubin Total 0.9 mg/dL (0.2-1.3); Blood Urea Nitrogen 22 mg/dL (9-20); Calcium 9.7 mg/dL (8.4-10.2); Carbon Dioxide 25 mmol/L (22-32); Chloride 107 mmol/L (98-107); Cholesterol 156 mg/dL (140-199); Estimated Glomerular Filt Rate > 60 mL/min (>60); Globulin 2.7 g/dL (1.7-4.1); Glucose 102 mg/dL (80-110); HDL Cholesterol 66 mg/dL (40-60); HEMOLYSIS < 15 (0-50); LDL Cholesterol Calculated 72 mg/dL (<100); Potassium 4.6 mmol/L (3.4-5.1); Sodium 137 mmol/L (137-145); Triglycerides 89 mg/dL (35-150)
== END ==
PROVIDERS: Family Provider Internal Medicine; PCP Family Medicine; Referring Provider Family Medicine; Visit Provider Family Medicine
DX: Z00.00 Encounter for general adult medical examination without abnormal findings (principal); R73.01 Impaired fasting glucose; E78.5 Hyperlipidemia, unspecified; I10 Essential (primary) hypertension; D69.6 Thrombocytopenia, unspecified
CPT/HCPCS: 36415; 80053; 80061; 83036; 85025

== ENCOUNTER → 2023-05-03 11:27 | Outpatient (CLI) | payer MEDICARE, OTHER, SELFPAY ==
[2022-04-27 10:42] VITALS: BMI 28.7
--- NOTE | 2023-05-03 11:29 | DI.RAD.S_ITS ---
PROCEDURE: XR LUMBAR SPINE 2-3V INDICATIONS: Lumbar pain TECHNIQUE: 3 views of the lumbar spine were acquired. COMPARISON: None. FINDINGS: Bones: Transitional lumbosacral body is designated as S1 for this report. 5 mm grade 1 anterolisthesis at L4-5. Generalized osteopenia. No vertebral body compression fractures. No suspicious bony lesions. Multilevel disc space narrowing degenerative endplate changes, most notably at the L4-5 level. There is moderate to severe facet hypertrophy in the lower lumbar spine. Soft tissues: Overlying bowel gas pattern is normal. Aortic atherosclerotic calcifications are present. IMPRESSION: Moderate to severe multilevel spondylosis and degenerative spondylolisthesis. Approved by: Jono Sullivan M.D. on 05/03/2023 at 17:33
== END ==
PROVIDERS: Family Provider Internal Medicine; PCP Family Medicine; Referring Provider Nurse Practitioner Family; Visit Provider Nurse Practitioner Family
DX: M47.816 Spondylosis without myelopathy or radiculopathy, lumbar region (principal); M43.16 Spondylolisthesis, lumbar region; M54.50 Low back pain, unspecified
CPT/HCPCS: 72100

== ENCOUNTER 2023-05-05 12:39 | Emergency (ER) | payer MEDICARE, OTHER, SELFPAY ==
[2022-04-27 10:42] VITALS: BMI 28.7
[2023-05-05 12:49] VITALS: BP 192/99; PULSE 122; RESP 18; TEMP 37; O2SAT 94; BMI 27.6
--- NOTE | 2023-05-05 13:13 | ED_ITS ---
HPI - Back Pain/Injury <CARLTON Ruiz - Last Filed: 05/05/23 13:23> General Chief Complaint: Back Pain/Injury Stated Complaint: lower back upper hip pain Time Seen by Provider: 05/05/23 12:47 Source: patient and family History of Present Illness HPI Narrative: 82-year-old male, never smoker, presents to the emergency department with persistent right lower back pain x1 week. Patient initially injured his back while tossing a log at home. Patient was seen in the walk-in clinic 2 days ago and given a Toradol injection and obtained a baseline lumbar x-ray. X-ray revealed narrowing. Patient returned to see his family doctor the following day, was instructed to have a MRI scheduled, and was prescribed a 4 day course of prednisone. Patient has been taking his cyclobenzaprine at nighttime, as previously prescribed, using warm compresses and lungs warm showers for mild relief and did take his prednisone and Aleve today. Patient did not want to schedule his MRI until he has some kind of pain relief, as he is concerned he would not be able to drive home after a MRI. Patient is hard of hearing and his is present. Patient denies any saddle anesthesia, loss of control of bowel or bladder or bilateral lower extremity numbness and tingling. Related Data Previous Rx's Medication Instructions Recorded ezetimibe 10 mg tablet 10 mg PO DAILY #90 tabs 11/07/22 lisinopril 20 mg tablet 20 mg PO DAILY #90 tabs 11/07/22 cyclobenzaprine 5 mg tablet 2.5 - 5 mg (0.5 - 1 x 5 mg) PO 04/27/23 DAILY PRN muscle spasm 30 days #30 tabs oxycodone-acetaminophen 5 mg-325 1 tab PO Q6H PRN pain #45 tabs 05/09/23 mg tablet (Percocet) gabapentin 300 mg capsule 300 mg PO .COMPLEX #90 caps 05/15/23 Allergies Allergy/AdvReac Type Severity Reaction Status Date / Time [id number] Reductase Allergy Verified 05/09/23 14:22 Inhibitor [Patoheg-Nfd-Xbs Reductase Inhibitor] Review of Systems <CARLTON Ruiz - Last Filed: 05/05/23 13:23> Review of Systems Narrative: Narrative: See HPI. GENERAL: Denies chills, fatigue, fever, sweats. HEENT: Denies sinus pain, ear pain, sore throat, difficulty swallowing, dizziness. RESPIRATORY: Denies dyspnea, cough, wheezing, sputum. CARDIOVASCULAR: Denies chest pain, palpitations, edema. GASTROINTESTINAL: Denies nausea, vomiting, abdominal pain, diarrhea, constipation. : Denies dysuria, frequency, incontinence, hematuria, urinary retention, flank pain. MSK: Endorses right lower back pain. SKIN: Denies rash, skin lesions, or pruritis. NEUROLOGIC: Denies weakness, dizziness, headache, numbness, confusion. PSYCHIATRIC: No concerning psychosocial issues. Patient History <CARLTON Ruiz - Last Filed: 05/05/23 13:23> Medical History (Updated 05/23/23 @ 00:01 by ) Lumbar facet arthropathy Lumbar spondylosis Lumbar radiculopathy Spinal stenosis at L4-L5 level Encounter for initial annual wellness visit (AWV) in Medicare patient IFG (impaired fasting glucose) Hyperlipidemia Benign essential HTN Surgical History History of appendectomy Family History Father No significant medical problems Mother No significant medical problems Brother Cancer Social History household members: spouse Smoking Status: Never smoker alcohol intake: current Smoking Status: Never smoker alcohol intake frequency: 0-2 drinks per day Substance Use Type: does not use Exam <CARLTON Ruiz - Last Filed: 05/05/23 13:23> Narrative Exam Narrative: Exam Narrative: GENERAL: This is a well-nourished, well-developed patient, in no acute distress. HEAD: Atraumatic. Normocephalic. EYES: Pupils equal round and reactive. No scleral icterus, injection or drainage. ENT: Nose without bleeding, purulent drainage. Airway patent. NECK: Trachea midline. No JVD or lymphadenopathy. Nontender. CARDIOVASCULAR: Regular rate and rhythm without murmurs, peripheral pulses intact, cap refill <2 sec. RESPIRATORY: Breath sounds equal and clear bilaterally. No wheezes, rales, or rhonchi. No cough. No increased respiratory effort. No accessory muscle use. GASTROINTESTINAL: Abdomen soft, non-tender, nondistended without guarding or rebound. No suprapubic pain. MSK: Moves all extremities. Normal range of motion, no clubbing or edema. Neurovascularly intact. NEURO: A&O x 3. SKIN: Warm, dry, no rashes or lesions noted. Hip: There is no obvious deformity. There is no redness, swelling or wound. Able to bear weight on each leg independently. Non-tender over the greater trochanter, ischial spine or SI joint. Active flexion and extension as well as lateral excursion are full and without pain. There is no pain along the ilio-tibial band. BACK wood milling machine tender but free of any obvious external abnormalities. There is no asymmetry, swelling, bruising or wound. There is no paraspinal tenderness or CVA tenderness. SI joints nontender. No pain over spinous processes. No symptoms of cauda equina such as saddle anesthesia. Sensation is grossly intact. ROM is limited due to pain. SLE is negative bilaterally. Reflexes 2-3 at patella and achilles bilaterally. Resistive strengths are within normal limits Gait is ataxic. Initial Vital Signs Initial Vital Signs: Vital Signs Temperature 98.6 F 05/05/23 12:49 Pulse Rate 122 H 05/05/23 12:49 Respiratory Rate 18 05/05/23 12:49 Blood Pressure 192/99 H 05/05/23 12:49 Pulse Oximetry 94 05/05/23 12:49 Oxygen Delivery Method Room Air 05/05/23 12:49 Reviewed <Lennox Doll MD - Last Filed: 05/24/23 07:08> Initial Vital Signs Initial Vital Signs: Vital Signs Temperature 98.6 F 05/05/23 12:49 Pulse Rate 122 H 05/05/23 12:49 Respiratory Rate 18 05/05/23 12:49 Blood Pressure 192/99 H 05/05/23 12:49 Pulse Oximetry 94 05/05/23 12:49 Oxygen Delivery Method Room Air 05/05/23 12:49 Course <CARLTON Ruiz - Last Filed: 05/05/23 13:23> Vital Signs Vital signs: Vital Signs - 8 hr 05/05/23 12:49 05/05/23 13:16 Temperature 98.6 F Pulse Rate 122 H 92 H Respiratory Rate 18 Blood Pressure 192/99 H 155/86 H Pulse Oximetry 94 Oxygen Delivery Method Room Air <Lennox Doll MD - Last Filed: 05/24/23 07:08> Vital Signs Vital signs: Vital Signs - 8 hr 05/05/23 12:49 05/05/23 13:16 Temperature 98.6 F Pulse Rate 122 H 92 H Respiratory Rate 18 Blood Pressure 192/99 H 155/86 H Pulse Oximetry 94 Oxygen Delivery Method Room Air MDM - Back Pain/Injury <Gary PinkCARLTON - Last Filed: 05/05/23 13:23> Differential Diagnosis Differential diagnosis: Likely lumbar radiculopathy and strain of lumbar region MDM Narrative Medical decision making narrative: 82-year-old male with one-week history of right lower back pain. Assessment was consistent with reported mechanism of injury. Recent lumbar x-ray revealed narrowing. Patient was treated with Toradol and prednisone without significant relief. Consideration included that injury was non-traumatic, patient is not a IV drug user, no fever, neurovascular intact, no weakness, no signs of epidural abscess or saddle anesthesia. Instructed patient to schedule his MRI darrell, as previously directed. Will provide patient with a short course of pain medication for breakthrough pain only. Discussed supportive care measures to include rest, positioning, gentle range of motion stretching exercises, hot or cold compresses to the affected site, daily Aleve, continue taking his prednisone as prescribed and use the pain medication for breakthrough pain only. Patient and spouse verbalized understanding and were agreeable with course of action. Discharge Plan Departure Patient Disposition: Home Clinical Impression: Lumbar back pain Instructions: DI for Low Back Pain Activity Restrictions/Additional Instructions: *You have been diagnosed with lumbar back pain. I am sorry that you are experiencing such pain and that some of the medications have not helped you out. First and foremost, please schedule the MRI as you were previously directed. Please use hot or cold compresses as needed to the affected site to manage pain. You may take 2 Aleve twice daily with food for the next 3-5 days. Please continue taking the prednisone (steroids) as prescribed. I am providing you a short course of pain medication for breakthrough pain only. For any worsening symptoms that include loss of control of bowel or bladder, numbness and tingling of bilateral legs, shortness of breath, chest pain or intolerable pain, please return to the emergency department. *What to do: *Please continue to take your regular medications as directed. [ X] New medication prescriptions sent to your pharmacy: [[facility]] [ ] New medication written as a paper prescription [ ] No new medications given *Please follow up with your primary care provider in 2-3 days, call for an appointment. Let them know you were seen in the Emergency Department and that we ask that you be seen in follow up. We will electronically transmit a record of today's note if your PCP is in our system *If you do not have a primary care provider please contact the [facility] Resource line at [phone]. They will ask some questions about your medical history and help get you set up with a doctor in the community. ? Return to ER if you should have any new, worsening or concerning symptoms, such as worsening pain, severe headache, confusion, chest pain, difficulty breathing, fever greater than 101 F, shaking chills, persistent vomiting to the point that you cannot drink fluids, or other new or worsening symptoms. Prescriptions: No Action ezetimibe 10 mg tablet 10 mg PO DAILY Qty: 90 3RF lisinopril 20 mg tablet 20 mg PO DAILY Qty: 90 3RF cyclobenzaprine 5 mg tablet 2.5 - 5 mg PO DAILY PRN (Reason: muscle spasm) 30 Days Qty: 30 0RF oxycodone-acetaminophen [Percocet] 5-325 mg tablet 1 tab PO Q6H PRN (Reason: pain) Qty: 45 0RF gabapentin 300 mg capsule 300 mg PO .COMPLEX Qty: 90 2RF Rx Instructions: 1 PO QHS x3 days if tolerated, 1 PO BID x3 days if tolerated, 1 PO TID Referrals: Vernon Guzman DO [Primary Care Provider] - Stand Alone Forms: Patient Portal/API ED Sign-out <Lennox Doll MD - Last Filed: 05/24/23 07:08> Cosign ED Attending Dimple Attestation: I was immediately available in the department for consultation. ?This documentation has been reviewed and I agree with assessment and plan. Supervised by Lennox Doll MD
[2023-05-05 13:16] VITALS: BP 155/86; PULSE 92
== END 2023-05-05 13:22 | disposition home or self-care (01) ==
PROVIDERS: Emergency Provider Registered Nurse; Family Provider Internal Medicine; PCP Family Medicine
DX: M54.50 Low back pain, unspecified (principal)
CPT/HCPCS: 99281

== ENCOUNTER → 2023-05-07 15:04 | Outpatient (CLI) | payer MEDICARE, OTHER, SELFPAY ==
[2022-04-27 10:42] VITALS: BMI 28.7
--- NOTE | 2023-05-07 15:08 | DI.MRI.S_ITS ---
PROCEDURE: MR LUMBAR SPINE WO CON INDICATIONS: severe back pain TECHNIQUE: Noncontrast sagittal T1 spin echo and T2 fast echo, sagittal STIR, and T2 fast spin echo through the lumbar spine. In cases with scoliosis, additional coronal T2 fast spin echo may be performed. COMPARISON: None. FINDINGS: Image quality: Excellent. Alignment and Curvature: Trace retrolisthesis L2 on three and grade 1 anterolisthesis L4 on five. Bone Marrow: There is mild marrow edema, mixed type one and three Modic changes, and small inferior endplate Schmorl's node in L2. There are prominent type 2 Modic changes at the endplates T12, L4, and L5. No other areas of edema. Spinal Cord: Conus medullaris terminates at the L1 level. Visualized cord demonstrates normal signal and size. Paraspinous Soft Tissues: No paravertebral masses. T12-L1: Normal disc. Mild to moderate facet arthropathy. L1-L2: Mild diffuse circumferential disc bulge and endplate spurring. Moderate facet arthropathy. Mild right foraminal narrowing due to facet arthropathy. L2-L3: Moderate circumferential disc osteophyte narrowing the anterior CSF without nerve root displacement. Moderate facet arthropathy and ligamentum flavum hypertrophy. Mild bilateral foraminal narrowing and central canal narrowing. L3-L4: Mild circumferential disc bulge and moderate facet arthropathy with ligamentum flavum hypertrophy. Anterior CSF space flattening. Mild to moderate bilateral foraminal narrowing. Mild central canal narrowing. L4-L5: Severe facet and ligamentum flavum hypertrophy. Disc uncovering. There is severe central canal stenosis. [id number] left foraminal narrowing. The distal nerves in the central canal are wavy in contour. L5-S1: Moderate circumferential disc bulge and moderately severe facet arthropathy. There is lateral recess narrowing and mild central canal stenosis. Mild to moderate bilateral foraminal narrowing. IMPRESSION: Severe central canal stenosis at L4-5. Multilevel bilateral mainly [id number] foraminal narrowing. Marrow edema and Schmorl's node formation in the inferior endplate of L2. This may be symptomatic. Correlate clinically. Dictated by: Alessia Hutchison M.D. on 05/07/2023 at 20:31 Approved by: Alessia Hutchison M.D. on 05/07/2023 at 20:45
== END ==
LOC: MRI 15:07
PROVIDERS: Family Provider Internal Medicine; PCP Family Medicine; Referring Provider Family Medicine; Visit Provider Family Medicine
DX: M43.17 Spondylolisthesis, lumbosacral region (principal); M47.9 Spondylosis, unspecified; M48.061 Spinal stenosis, lumbar region without neurogenic claudication; M48.07 Spinal stenosis, lumbosacral region; M51.46 Schmorl's nodes, lumbar region
CPT/HCPCS: 72148

== ENCOUNTER 2023-05-08 11:10 | Emergency (ER) | payer MEDICARE, OTHER, SELFPAY ==
[2022-04-27 10:42] VITALS: BMI 28.7
[2023-05-08 11:28] VITALS: BP 166/87; PULSE 72; RESP 18; TEMP 36.8; O2SAT 94; BMI 27.6
--- NOTE | 2023-05-08 11:57 | ED.BACK ---
HPI - Back Pain/Injury <Guero Doyle PA-C - Last Filed: 05/08/23 12:39> General Chief Complaint: Back Pain/Injury Stated Complaint: severe lower back pain Time Seen by Provider: 05/08/23 11:39 Source: patient History of Present Illness HPI Narrative: 82-year-old male with past medical history hypertension, hyperlipidemia presents to the ED with 1 week of lower back pain. Patient was seen in the ED 4 days ago, discharged with pain medications. 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 There is marrow edema and Schmorl's node formation in the inferior endplate of L2. No other acute findings. Patient presents to the ED today since he has run out of pain medications and his pain has worsened and it is difficult for him to walk. Patient denies numbness, tingling, weakness, urinary incontinence, urinary hesitancy, bowel incontinence. Patient also complains of constipation, has not had a bowel movement for 4 days which is unusual for him. Patient tried some Ex-Lax yesterday with no relief. No fever, chills, nausea, vomiting, abdominal pain, dysuria. Related Data Previous Rx's Medication Instructions Recorded ezetimibe 10 mg tablet 10 mg PO DAILY #90 tabs 11/07/22 lisinopril 20 mg tablet 20 mg PO DAILY #90 tabs 11/07/22 cyclobenzaprine 5 mg tablet 2.5 - 5 mg (0.5 - 1 x 5 mg) PO 04/27/23 DAILY PRN muscle spasm 30 days #30 tabs oxycodone-acetaminophen 5 mg-325 1 tab PO Q6H PRN pain #10 tabs 05/05/23 mg tablet (Percocet) Allergies Allergy/AdvReac Type Severity Reaction Status Date / Time Udsqoyl-NPC-AaE Reductase Allergy Verified 05/04/23 13:05 Inhibitor [Yizukvb-Ioq-Zpr Reductase Inhibitor] Review of Systems <Guero Doyle PA-C - Last Filed: 05/08/23 12:39> Constitutional Constitutional: Denies chills, Denies fatigue, Denies fever(s), Denies frequent falls, Denies lethargy and Denies weakness Eyes Eyes: Denies change in vision, Denies eye discharge, Denies irritation and Denies loss of vision ENT Ears, Nose, Mouth, and Throat: Denies change in voice, Denies dizziness, Denies neck pain, Denies sore throat and Denies throat swelling Cardiovascular Cardiovascular: Denies chest pain, Denies irregular heart rhythm, Denies lightheadedness, Denies palpitations, Denies dyspnea, Denies dyspnea on exertion and Denies orthopnea Respiratory Respiratory: Denies cough, Denies dyspnea, Denies dyspnea on exertion and Denies wheezing Gastrointestinal Gastrointestinal: Denies abdominal pain, Denies change in bowel habits, Reports constipation, Denies diarrhea, Denies nausea and Denies vomiting Musculoskeletal Musculoskeletal: Reports back pain, Denies neck pain and Denies numbness Integumentary/Breasts Skin/Breast: Denies pruritus, Denies erythema, Denies rash and Denies wounds Neurologic Neurologic: Denies behavioral changes, Denies confusion, Denies dizziness, Denies frequent falls, Denies loss of vision, Denies numbness and Denies weakness Psychiatric Psychiatric: Denies anxiety, Denies behavioral changes, Denies confusion, Denies depression, Denies homicidal ideation and Denies suicidal ideation Endocrine Endocrine: Denies fatigue, Denies flushing and Denies palpitations Hematologic/Lymphatic Hematologic/Lymphatic: Denies easy bruising Allergic/Immunologic Allergic/Immunologic: Denies urticaria, Denies throat swelling and Denies wheezing Patient History <Guero Doyle PA-C - Last Filed: 05/08/23 12:39> Medical History Encounter for initial annual wellness visit (AWV) in Medicare patient IFG (impaired fasting glucose) Hyperlipidemia Benign essential HTN Surgical History History of appendectomy Family History Father No significant medical problems Mother No significant medical problems Brother Cancer Social History household members: spouse Smoking Status: Never smoker alcohol intake: current Smoking Status: Never smoker alcohol intake frequency: 0-2 drinks per day Substance Use Type: does not use Exam <Guero Doyle PA-C - Last Filed: 05/08/23 12:39> Narrative Exam Narrative: Const General:?cooperative, healthy appearing and comfortable [facility] Head:?normal to inspection Ears:?hearing grossly normal bilaterally Nose:?external nose normal Face and sinus:?normal facial exam and sinuses nontender Mouth:?oral mucosae normal Throat:?posterior oropharynx normal Eyes General:?appearance normal, both eyes and all related structures Neck Neck:?normal visual inspection and no lymphadenopathy noted Resp Effort & Inspection:?normal respiratory effort Auscultation:?clear to auscultation bilaterally Cardio Rate:?regular rate Rhythm:?regular rhythm Musculoskeletal No midline tenderness to palpation. No paraspinal tenderness to palpation. Strength and sensation is intact. Range of motion limited by pain. Neuro General:?patient alert, patient awake and patient oriented x3 Initial Vital Signs Initial Vital Signs: Vital Signs Temperature 98.3 F 05/08/23 11:28 Pulse Rate 72 05/08/23 11:28 Respiratory Rate 18 05/08/23 11:28 Blood Pressure 166/87 H 05/08/23 11:28 Pulse Oximetry 94 05/08/23 11:28 Oxygen Delivery Method Room Air 05/08/23 11:28 <Pippa Lloyd DO - Last Filed: 05/09/23 07:23> Initial Vital Signs Initial Vital Signs: Vital Signs Temperature 98.3 F 05/08/23 11:28 Pulse Rate 72 05/08/23 11:28 Respiratory Rate 18 05/08/23 11:28 Blood Pressure 166/87 H 05/08/23 11:28 Pulse Oximetry 94 05/08/23 11:28 Oxygen Delivery Method Room Air 05/08/23 11:28 Course <Guero Doyle PA-C - Last Filed: 05/08/23 12:39> Orders Ordered: Discontinued Medications Ketorolac Tromethamine (Ketorolac 30 Mg/Ml Vial) 30 mg IM NOW ONE Stop: 05/08/23 11:57 Last Admin: 05/08/23 12:14 Dose: 30 mg Documented By: RB Ondansetron HCl (Ondansetron 4 Mg/2 Ml Inj) 4 mg IV NOW PRN PRN Reason: Nausea And Vomiting Ondansetron HCl (Ondansetron 4 Mg Odt) 4 mg PO NOW PRN PRN Reason: Nausea And Vomiting Vital Signs Vital signs: Vital Signs - 8 hr 05/08/23 11:28 Temperature 98.3 F Pulse Rate 72 Respiratory Rate 18 Blood Pressure 166/87 H Pulse Oximetry 94 Oxygen Delivery Method Room Air <Pippa Lloyd DO - Last Filed: 05/09/23 07:23> Orders Ordered: Discontinued Medications Ketorolac Tromethamine (Ketorolac 30 Mg/Ml Vial) 30 mg IM NOW ONE Stop: 05/08/23 11:57 Last Admin: 05/08/23 12:14 Dose: 30 mg Documented By: RB Ondansetron HCl (Ondansetron 4 Mg/2 Ml Inj) 4 mg IV NOW PRN PRN Reason: Nausea And Vomiting Ondansetron HCl (Ondansetron 4 Mg Odt) 4 mg PO NOW PRN PRN Reason: Nausea And Vomiting Vital Signs Vital signs: Vital Signs - 8 hr 05/08/23 11:28 Temperature 98.3 F Pulse Rate 72 Respiratory Rate 18 Blood Pressure 166/87 H Pulse Oximetry 94 Oxygen Delivery Method Room Air MDM - Back Pain/Injury <Guero Doyle PA-C - Last Filed: 05/08/23 12:39> MDM Narrative Medical decision making narrative: 82-year-old male with past medical history hypertension, hyperlipidemia presents to the ED with 1 week of lower back pain. Patient's symptoms most consistent with a musculoskeletal sprain/strain versus disc etiology versus other. Recommend lidocaine patches, ibuprofen, Tylenol for back pain. Recommend follow-up with PCP and ortho as soon as possible. Recommend magnesium citrate for immediate relief of constipation. Recommend nightly MiraLax as bowel regimen. ED return precautions discussed with patient. Patient verbalized understanding. Medical records reviewed: Yes Discharge Plan Departure Patient Disposition: Home Clinical Impression: Low back pain Qualifiers: Chronicity: acute Back pain laterality: unspecified Sciatica presence: unspecified whether sciatica present Qualified Code(s): M54.50 - Low back pain, unspecified Instructions: DI for Low Back Pain Activity Restrictions/Additional Instructions: You were seen in the ED today for low back pain and constipation. You may take 300 mg of magnesium citrate which is available [id number] and drug stores for the constipation. You may take it once or twice. Please ensure to stay close to a bathroom when you take this medication. Please also take MiraLax nightly for constipation which is also available [id number]. You may take 800 mg of Advil, 1000 mg of Tylenol every 8 hours with food for the back pain. You may also apply lidocaine patches which are available [id number] at drug stores. Please follow-up with your PCP as soon as possible for further evaluation and referral to ortho. You may schedule a appointment with [facility] at [phone]. Return to the ED if you have worsening symptoms, numbness, tingling, weakness. Prescriptions: No Action ezetimibe 10 mg tablet 10 mg PO DAILY Qty: 90 3RF lisinopril 20 mg tablet 20 mg PO DAILY Qty: 90 3RF cyclobenzaprine 5 mg tablet 2.5 - 5 mg PO DAILY PRN (Reason: muscle spasm) 30 Days Qty: 30 0RF oxycodone-acetaminophen [Percocet] 5-325 mg tablet 1 tab PO Q6H PRN (Reason: pain) Qty: 10 0RF Referrals: Vernon Guzman DO [Primary Care Provider] - Stand Alone Forms: Patient Portal/API ED Sign-out <Pippa Lloyd DO - Last Filed: 05/09/23 07:23> Cosign ED Attending Dimple Attestation: I was immediately available in the department for consultation.
[2023-05-08] MEDS: KETOROLAC 30 MG/ML VIAL IM (12:14)
== END 2023-05-08 12:16 | disposition home or self-care (01) ==
PROVIDERS: Emergency Provider Student in an Organized Health Care Education/Training Program; Family Provider Internal Medicine; PCP Family Medicine
DX: M54.50 Low back pain, unspecified (principal)
CPT/HCPCS: 96372; 99283; J1885

== ENCOUNTER 2023-05-17 13:14 | Outpatient (CLI) | payer MEDICARE, OTHER, SELFPAY ==
[2023-05-10 14:05] VITALS: BMI 28.7
[2023-05-17] VITALS (7 sets, daily range): BP systolic 118–154; BP diastolic 67–92; PULSE 77–87; RESP 13–18; O2SAT 96–98
[2023-05-17] MEDS: MIDAZOLAM 2 MG/2 ML VIAL 0.5 MG IV (13:55)
[2023-05-17] MEDS: DEXAMETHASONE 10 MG/ML VIAL INJ (14:00)
--- NOTE | 2023-05-17 14:00 | DI.RAD.S_ITS ---
PROCEDURE: PAIN L INTERLAMINAR/CAUDAL INJ INDICATIONS: RADICULOPATHY COMPARISON: None. FINDINGS: Fluoroscopic spot filming was performed to verify placement of spinal needles at the L4-5 level(s), as labeled on the films. Appropriate location(s) of the needle tip(s) was confirmed by injection of iodinated contrast. IMPRESSION: L4-5 needle placement. Dictated by: Faina Morris M.D. on 05/17/2023 at 21:32 Approved by: Faina Morris M.D. on 05/17/2023 at 21:33
[2023-05-17] MEDS: iopamidoL 15 ML VIAL 3 ML INJ (14:01)
--- NOTE | 2023-05-17 14:12 | P.PCN_ITS ---
Date/Time/Diagnoses Date of procedure: 05/17/23 Time of procedure: 14:00 Procedure Notes Physician: Alexandr Shultz Total Fluoroscopy time (seconds): 10 Total sedation minutes: 11 Procedure in detail & Post-procedure care: L4-5 Interlaminar Epidural Steroid Injection Indications: Bebo is presenting for treatment of lumbar radiculopathy with low back and leg pain. Preoperative diagnosis: Lumbar radiculopathy Postoperative diagnosis: Same Focused Examination: Ax3 Mood and affect are normal Vital Signs: VSS ASA: 2 Consent: Following review of allergies and potential side effects/complications, including, but not necessarily limited to, infection, allergic reaction, local tissue breakdown, stroke, temporary or permanent nerve injury, paralysis, and possible , the patient indicated that they understood and agreed to proc eed.? An informed consent document was signed by the patient, witnessed by a nurse and placed in the patient's chart.? Additionally, other treatment options including medications and physical therapy were reviewed with the patient. All questions were answered. Site was then marked. Anesthesia: After review of previous anesthetic history and IV conscious sedation, the patient was deemed safe to proceed with today's procedure with IV conscious sedation. IV sedation was accomplished with midazolam 0.5 mg administered by the RN after order by Dr. Shultz. Sedation was titrated to patient comfort during the course of the procedure. Patient remained responsive to all verbal commands. Position: Prone Monitoring: NIBP, Pulse oximetry, 3 lead EKG Needle used: 18 G 3.5? Tuohy Contrast: Isovue 300M Injectate: Dexamethasone 10 mg with 1% lidocaine 2 mL Technique: The skin was prepped with chloraprep and then draped in a sterile fashion. Time out was performed as per protocol. Oxygen applied via NC. Skin and subcutaneous structures of the needle entry site was then infiltrated with 3 mL of lidocaine 1%. Under AP, lateral and contralateral oblique fluoroscopic control, the Tuohy needle was guided into the L4-5 epidural space. The space was accessed with loss of resistance technique. Isovue 300M was then injected and the spread was consistent with the epidural space. There was no evidence for intravascular or intrathecal uptake. After negative aspiration, the above- mentioned injectate was then slowly administered and the needle withdrawn. The patient expressed no unusual discomfort or paresthesias during the injection. Band-Aids applied to injection sites. EBL: less than 1 ml Complications: None Post Procedure: Patient was taken to the recovery and monitored. The patient was provided a Pain Log to continue to record the patient's response to the target- specific procedure prior to the patient's follow-up visit with the referring physician. Patient was stable upon discharge. Detailed post procedure instructions were provided. Patient was asked to call in the event of worsening pain, fever, weakness, numbness or bladder or bowel incontinence.
== END 2023-05-17 14:45 | disposition home or self-care (01) ==
PROVIDERS: Family Provider Internal Medicine; PCP Family Medicine; Referring Provider Anesthesiology; Visit Provider Anesthesiology
DX: M54.16 Radiculopathy, lumbar region (principal)
CPT/HCPCS: 62323; 99152; J1100; J2250

== ENCOUNTER → 2024-04-01 14:21 | Outpatient (CLI) | payer MEDICARE, OTHER, SELFPAY ==
[2023-05-10 14:05] VITALS: BMI 28.7
[2024-04-01 15:24] LABS: Alanine Aminotransferase 24 IU/L (<50); Albumin 3.7 g/dL (3.5-5.0); Albumin Globulin Ratio 1.5 (1.0-2.8); Alkaline Phosphatase 62 U/L (38-126); Aspartate Aminotransferase 24 IU/L (17-59); BUN Creatinine Ratio 37.5 (6-22); Bilirubin Total 0.5 mg/dL (0.2-1.3); Blood Urea Nitrogen 27 mg/dL (9-20); Calcium 9.4 mg/dL (8.4-10.2); Carbon Dioxide 30 mmol/L (22-32); Chloride 107 mmol/L (98-107); Estimated Glomerular Filt Rate > 60 mL/min (>60); Globulin 2.4 g/dL (1.7-4.1); Glucose 132 mg/dL (80-110); HEMOLYSIS < 15 (0-50); Potassium 3.9 mmol/L (3.4-5.1); Sodium 138 mmol/L (137-145); Total Protein 6.1 g/dL (6.3-8.2)
== END ==
PROVIDERS: Family Provider Internal Medicine; PCP Family Medicine; Referring Provider Family Medicine; Visit Provider Family Medicine
DX: I10 Essential (primary) hypertension (principal); E78.5 Hyperlipidemia, unspecified
CPT/HCPCS: 36415; 80053

== ENCOUNTER → 2025-01-22 13:35 | Outpatient (CLI) | payer MEDICARE, OTHER, SELFPAY ==
[2024-06-04 10:19] VITALS: BMI 28.7
[2025-01-22 14:22] LABS: Hemoglobin A1C% w Est Avg Glu 5.5 % (4.0-6.0)
[2025-01-22 14:33] LABS: Alanine Aminotransferase 21 IU/L (<50); Albumin 4.4 g/dL (3.5-5.0); Albumin Globulin Ratio 1.7 (1.0-2.8); Alkaline Phosphatase 82 U/L (38-126); Blood Urea Nitrogen 31 mg/dL (9-20); Calcium 9.3 mg/dL (8.4-10.2); Carbon Dioxide 25 mmol/L (22-32); Chloride 105 mmol/L (98-107); Cholesterol 154 mg/dL (140-199); Estimated Glomerular Filt Rate > 60 mL/min (>60); Globulin 2.6 g/dL (1.7-4.1); Glucose 141 mg/dL (70-99); HDL Cholesterol 93 mg/dL (40-60); HEMOLYSIS < 15 (0-50); Potassium 4.5 mmol/L (3.4-5.1); Sodium 138 mmol/L (137-145); Total Protein 7.0 g/dL (6.3-8.2); Triglycerides 92 mg/dL (35-150)
== END ==
PROVIDERS: Family Provider Internal Medicine; PCP Family Medicine; Referring Provider Family Medicine; Visit Provider Family Medicine
DX: Z00.00 Encounter for general adult medical examination without abnormal findings (principal); R73.01 Impaired fasting glucose; I10 Essential (primary) hypertension; E78.49 Other hyperlipidemia
CPT/HCPCS: 36415; 80053; 80061; 83036